=== PATIENT | male | born 1995 | race Caucasian/White ===

== ENCOUNTER 2018-08-25 21:52 | Emergency (ER) | payer OTHER ==
[~2018-08-25] VITALS: Ht 172.7 cm; Wt 68.2 kg
[2018-08-25 21:53] VITALS: BP 127/63
== END 2018-08-26 01:37 | disposition home or self-care (01) ==
LOC: M ED 21:52
DX: S61.212A Laceration without foreign body of right middle finger without damage to nail, initial encounter (principal); W26.8XXA Contact with other sharp object(s), not elsewhere classified, initial encounter; Y92.89 Other specified places as the place of occurrence of the external cause; Y99.0 Civilian activity done for income or pay; F17.200 Nicotine dependence, unspecified, uncomplicated

== ENCOUNTER 2018-11-29 01:11 | Emergency (ER) | payer OTHER, SELFPAY ==
[~2018-11-29] VITALS: Ht 172.7 cm; Wt 72.7 kg
[2018-11-29] MEDS ORDERED: ONDANSETRON 4MG/2ML VIAL (J2405) IV ONE (02:00)
[2018-11-29] MEDS ORDERED: NS 1,000 ML IV ONE (02:00)
[2018-11-29 02:31] LABS: BASO # 0.1 10^3/uL (0.0-0.2); BASO % 0.6 % (0.0-1.0); EOS # 0.2 10^3/uL (0.0-0.5); EOS % 2.7 % (0.0-3.0); HEMATOCRIT 43.4 % (42.0-52.0); HEMOGLOBIN 15.4 g/dl (13.5-17.5); LYMPH # 2.7 10^3/uL (1.5-5.0); LYMPH % 32.9 % (24.0-44.0); MEAN CORPUSCULAR HEMOGLOBIN 32.3 pg (27.0-33.0); MEAN CORPUSCULAR HGB CONC 35.5 g/dl (32.0-36.5); MONO # 0.6 10^3/uL (0.0-0.8); MONO % 6.9 % (0.0-5.0); NEUTROPHILS # 4.6 10^3/uL (1.5-8.5); NEUTROPHILS % 56.7 % (36.0-66.0); PLATELET COUNT, AUTOMATED 223 10^3/uL (150-450); RED BLOOD COUNT 4.77 10^6/uL (4.30-6.10); WHITE BLOOD COUNT 8.1 10^3/uL (4.0-10.0)
[2018-11-29 03:03] LABS: BLOOD UREA NITROGEN 15 MG/DL (7-18); CALCIUM LEVEL 8.7 MG/DL (8.5-10.1); CARBON DIOXIDE LEVEL 27 MEQ/L (21-32); CHLORIDE LEVEL 107 MEQ/L (98-107); CREATININE FOR GFR 0.78 MG/DL (0.70-1.30); GLOMERULAR FILTRATION RATE > 60.0 (>60); GLUCOSE, FASTING 96 MG/DL (70-100); MAGNESIUM LEVEL 1.8 MG/DL (1.8-2.4); SODIUM LEVEL 141 MEQ/L (136-145)
[2018-11-29 05:16] VITALS: BP 123/57
--- NOTE | 2018-11-29 06:00 | ECGEPIP ---
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
== END 2018-11-29 05:21 | disposition home or self-care (01) ==
LOC: M ED 01:11
DX: R55 Syncope and collapse (principal); F17.210 Nicotine dependence, cigarettes, uncomplicated; K21.9 Gastro-esophageal reflux disease without esophagitis
CPT/HCPCS: 80048; 83735; 85025; 93005; 96374; 99285; J2405

== ENCOUNTER 2018-12-08 19:49 | Emergency (ER) | payer OTHER, SELFPAY ==
[~2018-12-08] VITALS: Ht 172.7 cm; Wt 72.7 kg
[2018-12-08 23:28] LABS: HEMATOCRIT 41.9 % (42.0-52.0); HEMOGLOBIN 15.1 g/dl (13.5-17.5); MEAN CORPUSCULAR HEMOGLOBIN 31.9 pg (27.0-33.0); MEAN CORPUSCULAR VOLUME 88.4 fl (80.0-96.0); PLATELET COUNT, AUTOMATED 249 10^3/uL (150-450); RED BLOOD COUNT 4.74 10^6/uL (4.30-6.10); WHITE BLOOD COUNT 10.2 10^3/uL (4.0-10.0)
[2018-12-08] MEDS ORDERED: LORazepam 0.5 MG TAB PO ONE (23:30)
[2018-12-09] LABS: AMPHETAMINES LEVEL URINE NEGATIVE (NEGATIVE); BARBITURATES URINE NEGATIVE (NEGATIVE); BENZODIAZEPINES URINE NEGATIVE (NEGATIVE); CANNABINOIDS URINE POSITIVE (NEGATIVE); COCAINE METABOLITE URINE NEGATIVE (NEGATIVE); METHADONE URINE NEGATIVE (NEGATIVE); OPIATES URINE NEGATIVE (NEGATIVE); PHENCYCLIDINE URINE NEGATIVE (NEGATIVE)
[2018-12-09 00:05] LABS: ACETAMINOPHEN LEVEL < 2.0 UG/ML (10.0-30.0); ALT/SGPT 28 U/L (12-78); BILIRUBIN,DIRECT 0.3 MG/DL (0.0-0.2); BILIRUBIN,TOTAL 1.2 MG/DL (0.2-1.0); BLOOD UREA NITROGEN 15 MG/DL (7-18); CALCIUM LEVEL 8.7 MG/DL (8.5-10.1); CARBON DIOXIDE LEVEL 24 MEQ/L (21-32); CHLORIDE LEVEL 106 MEQ/L (98-107); CREATININE FOR GFR 0.89 MG/DL (0.70-1.30); ETHYL ALCOHOL (ETHANOL) < 0.003 % (0.000-0.010); GLOMERULAR FILTRATION RATE > 60.0 (>60); GLUCOSE, FASTING 79 MG/DL (70-100); POTASSIUM SERUM 3.7 MEQ/L (3.5-5.1); SALICYLATE LEVEL < 1.7 MG/DL (5.0-30.0); SODIUM LEVEL 139 MEQ/L (136-145); THYROID STIMULATING HORMONE 0.459 uIU/ML (0.358-3.740); TOTAL PROTEIN 7.4 GM/DL (6.4-8.2)
[2018-12-09 00:30] VITALS: BP 118/59
--- NOTE | 2018-12-09 20:41 | ECGEPIP ---
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
== END 2018-12-09 01:30 | disposition home or self-care (01) ==
LOC: M ED 19:49
DX: F41.9 Anxiety disorder, unspecified (principal); F32.9 Major depressive disorder, single episode, unspecified
CPT/HCPCS: 80048; 80076; 80307; 84443; 85027; 93005; 99284; G0480

== ENCOUNTER 2018-12-16 22:01 | Emergency (ER) | payer OTHER ==
[~2018-12-16] VITALS: Ht 172.7 cm; Wt 65.3 kg
[2018-12-16] MEDS ORDERED: LORazepam 1 MG TAB PO ONE (22:30)
[2018-12-16 22:36] LABS: HEMATOCRIT 46.9 % (42.0-52.0); HEMOGLOBIN 16.8 g/dl (13.5-17.5); MEAN CORPUSCULAR HEMOGLOBIN 32.1 pg (27.0-33.0); MEAN CORPUSCULAR HGB CONC 35.8 g/dl (32.0-36.5); MEAN CORPUSCULAR VOLUME 89.5 fl (80.0-96.0); PLATELET COUNT, AUTOMATED 239 10^3/uL (150-450); RED BLOOD COUNT 5.24 10^6/uL (4.30-6.10); WHITE BLOOD COUNT 9.7 10^3/uL (4.0-10.0)
[2018-12-16 23:00] LABS: AMPHETAMINES LEVEL URINE NEGATIVE (NEGATIVE); BARBITURATES URINE NEGATIVE (NEGATIVE); BENZODIAZEPINES URINE NEGATIVE (NEGATIVE); CANNABINOIDS URINE NEGATIVE (NEGATIVE); COCAINE METABOLITE URINE NEGATIVE (NEGATIVE); METHADONE URINE NEGATIVE (NEGATIVE); OPIATES URINE NEGATIVE (NEGATIVE); PHENCYCLIDINE URINE NEGATIVE (NEGATIVE)
[2018-12-16 23:28] LABS: ACETAMINOPHEN LEVEL < 2.0 UG/ML (10.0-30.0); ALBUMIN 4.4 GM/DL (3.2-5.2); ALT/SGPT 30 U/L (12-78); BILIRUBIN,DIRECT 0.2 MG/DL (0.0-0.2); BILIRUBIN,TOTAL 0.5 MG/DL (0.2-1.0); BLOOD UREA NITROGEN 20 MG/DL (7-18); CALCIUM LEVEL 9.1 MG/DL (8.5-10.1); CARBON DIOXIDE LEVEL 23 MEQ/L (21-32); CHLORIDE LEVEL 109 MEQ/L (98-107); CREATININE FOR GFR 0.85 MG/DL (0.70-1.30); ETHYL ALCOHOL (ETHANOL) < 0.003 % (0.000-0.010); GLOMERULAR FILTRATION RATE > 60.0 (>60); GLUCOSE, FASTING 86 MG/DL (70-100); POTASSIUM SERUM 3.6 MEQ/L (3.5-5.1); SALICYLATE LEVEL 2.6 MG/DL (5.0-30.0); SODIUM LEVEL 139 MEQ/L (136-145); THYROID STIMULATING HORMONE 0.891 uIU/ML (0.358-3.740)
[2018-12-16 23:44] VITALS: BP 129/71
--- NOTE | 2018-12-17 07:11 | ECGEPIP ---
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
== END 2018-12-16 23:47 | disposition home or self-care (01) ==
LOC: M ED 22:01
DX: F41.9 Anxiety disorder, unspecified (principal); I45.89 Other specified conduction disorders
CPT/HCPCS: 80048; 80076; 80307; 84443; 85027; 93005; 93041; 94760; 99284; G0480

== ENCOUNTER 2018-12-23 11:44 | Emergency (ER) | payer OTHER ==
[~2018-12-23] VITALS: Ht 172.7 cm; Wt 70.5 kg
--- NOTE | 2018-12-23 12:13 | ECGEPIP ---
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
[2018-12-23] MEDS ORDERED: diphenhydrAMINE INJ 50MG/ML VIAL (J1200) IV STA (12:23)
[2018-12-23] MEDS ORDERED: NS 1,000 ML IV ONE (12:30)
[2018-12-23 13:12] LABS: HEMOGLOBIN 16.8 g/dl (13.5-17.5); MEAN CORPUSCULAR HEMOGLOBIN 32.1 pg (27.0-33.0); MEAN CORPUSCULAR HGB CONC 35.7 g/dl (32.0-36.5); MEAN CORPUSCULAR VOLUME 89.9 fl (80.0-96.0); PLATELET COUNT, AUTOMATED 243 10^3/uL (150-450); RED BLOOD COUNT 5.23 10^6/uL (4.30-6.10); WHITE BLOOD COUNT 9.7 10^3/uL (4.0-10.0)
[2018-12-23 13:45] LABS: ACETAMINOPHEN LEVEL < 2.0 UG/ML (10.0-30.0); ALBUMIN 4.2 GM/DL (3.2-5.2); ALT/SGPT 50 U/L (12-78); BILIRUBIN,DIRECT 0.1 MG/DL (0.0-0.2); BILIRUBIN,TOTAL 0.4 MG/DL (0.2-1.0); BLOOD UREA NITROGEN 11 MG/DL (7-18); CALCIUM LEVEL 9.1 MG/DL (8.5-10.1); CARBON DIOXIDE LEVEL 23 MEQ/L (21-32); CHLORIDE LEVEL 110 MEQ/L (98-107); CPK CREATINE PHOSPHOKINASE 103 U/L (39-308); CREATININE FOR GFR 0.71 MG/DL (0.70-1.30); ETHYL ALCOHOL (ETHANOL) 0.025 % (0.000-0.010); GLOMERULAR FILTRATION RATE > 60.0 (>60); GLUCOSE, FASTING 83 MG/DL (70-100); POTASSIUM SERUM 3.8 MEQ/L (3.5-5.1); SODIUM LEVEL 142 MEQ/L (136-145); TOTAL PROTEIN 8.3 GM/DL (6.4-8.2)
[2018-12-23 14:31] LABS: AMPHETAMINES LEVEL URINE NEGATIVE (NEGATIVE); BARBITURATES URINE NEGATIVE (NEGATIVE); BENZODIAZEPINES URINE NEGATIVE (NEGATIVE); CANNABINOIDS URINE POSITIVE (NEGATIVE); COCAINE METABOLITE URINE NEGATIVE (NEGATIVE); METHADONE URINE NEGATIVE (NEGATIVE); OPIATES URINE NEGATIVE (NEGATIVE); PHENCYCLIDINE URINE NEGATIVE (NEGATIVE)
[2018-12-23 16:01] VITALS: BP 126/68
== END 2018-12-23 16:10 | disposition home or self-care (01) ==
LOC: M ED 11:44
DX: F10.129 Alcohol abuse with intoxication, unspecified (principal); F41.9 Anxiety disorder, unspecified; F17.200 Nicotine dependence, unspecified, uncomplicated
CPT/HCPCS: 36415; 80048; 80076; 80307; 82550; 83735; 84443; 85027; 93005; 96374; 99284; G0480; J1200

== ENCOUNTER 2019-03-12 03:25 | Emergency (ER) | payer OTHER ==
[~2019-03-12] VITALS: Ht 170.2 cm; Wt 69.0 kg
[2019-03-12] MEDS ORDERED: HYDR-3363 (03:53)
[2019-03-12] MEDS ORDERED: HYDR-3363 PO (06:01)
[2019-03-12] MEDS ORDERED: NS 1,000 ML IV ONE (06:45)
[2019-03-12 07:14] LABS: BASO # 0.1 10^3/uL (0.0-0.2); BASO % 0.4 % (0.0-1.0); EOS # 0.1 10^3/uL (0.0-0.5); EOS % 0.9 % (0.0-3.0); HEMATOCRIT 50.4 % (42.0-52.0); HEMOGLOBIN 17.4 g/dl (13.5-17.5); LYMPH # 3.3 10^3/uL (1.5-5.0); LYMPH % 22.8 % (24.0-44.0); MEAN CORPUSCULAR HEMOGLOBIN 32.3 pg (27.0-33.0); MEAN CORPUSCULAR HGB CONC 34.5 g/dl (32.0-36.5); MEAN CORPUSCULAR VOLUME 93.7 fl (80.0-96.0); MONO # 0.8 10^3/uL (0.0-0.8); MONO % 5.7 % (0.0-5.0); NEUTROPHILS % 69.8 % (36.0-66.0); PLATELET COUNT, AUTOMATED 245 10^3/uL (150-450); RED BLOOD COUNT 5.38 10^6/uL (4.30-6.10); WHITE BLOOD COUNT 14.3 10^3/uL (4.0-10.0)
[2019-03-12 07:37] LABS: AMPHETAMINES LEVEL URINE NEGATIVE (NEGATIVE); BARBITURATES URINE NEGATIVE (NEGATIVE); BENZODIAZEPINES URINE NEGATIVE (NEGATIVE); CANNABINOIDS URINE POSITIVE (NEGATIVE); COCAINE METABOLITE URINE POSITIVE (NEGATIVE); METHADONE URINE NEGATIVE (NEGATIVE); OPIATES URINE NEGATIVE (NEGATIVE); PHENCYCLIDINE URINE NEGATIVE (NEGATIVE)
[2019-03-12 07:51] LABS: ACETAMINOPHEN LEVEL < 2.0 UG/ML (10.0-30.0); ALBUMIN 3.9 GM/DL (3.2-5.2); ALT/SGPT 25 U/L (12-78); BILIRUBIN,DIRECT 0.2 MG/DL (0.0-0.2); BILIRUBIN,TOTAL 0.9 MG/DL (0.2-1.0); BLOOD UREA NITROGEN 10 MG/DL (7-18); CALCIUM LEVEL 8.9 MG/DL (8.5-10.1); CARBON DIOXIDE LEVEL 26 MEQ/L (21-32); CHLORIDE LEVEL 108 MEQ/L (98-107); CPK CREATINE PHOSPHOKINASE 102 U/L (39-308); CREATININE FOR GFR 0.84 MG/DL (0.70-1.30); ETHYL ALCOHOL (ETHANOL) < 0.003 % (0.000-0.010); GLOMERULAR FILTRATION RATE > 60.0 (>60); GLUCOSE, FASTING 84 MG/DL (70-100); POTASSIUM SERUM 4.5 MEQ/L (3.5-5.1); SALICYLATE LEVEL 2.1 MG/DL (5.0-30.0); SODIUM LEVEL 141 MEQ/L (136-145); TOTAL PROTEIN 7.3 GM/DL (6.4-8.2)
[2019-03-12 08:21] VITALS: BP 94/44
--- NOTE | 2019-03-14 14:52 | ECGEPIP ---
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
== END 2019-03-12 08:39 | disposition home or self-care (01) ==
LOC: M ED 03:25
DX: F19.10 Other psychoactive substance abuse, uncomplicated (principal); F14.10 Cocaine abuse, uncomplicated; F16.10 Hallucinogen abuse, uncomplicated; F41.9 Anxiety disorder, unspecified
CPT/HCPCS: 80048; 80076; 80307; 82550; 84443; 85025; 93005; 96360; 99284; G0480

== ENCOUNTER 2019-05-31 21:19 | Emergency (ER) | payer OTHER ==
[~2019-05-31] VITALS: Ht 172.7 cm; Wt 74.4 kg
[~2019-05-31 21:19] MED LIST: HYDR-3363; HYDR-3363 PO
[2019-05-31] MEDS ORDERED: KETOROLAC 30 MG/ML VIAL (J1885) IV ONE (22:15)
[2019-05-31] MEDS ORDERED: ASPIRIN 81 MG CHEW TABLET PO ONE (22:15)
--- NOTE | 2019-05-31 22:47 | REP ---
Clinical: Chest pain . Comparison: None . Technique: PA and lateral. Findings: The mediastinum and cardiac silhouette are normal. The lung albarran are clear and without acute consolidation, effusion, or pneumothorax. The skeletal structures are intact and normal. Impression: 1. No focal consolidation or effusion. Electronically Signed by Darvin Barnes MD 05/31/2019 10:39 P
[2019-05-31 22:56] LABS: BASO # 0.1 10^3/uL (0.0-0.2); BASO % 0.6 % (0.0-1.0); EOS # 0.3 10^3/uL (0.0-0.5); HEMOGLOBIN 17.6 g/dl (13.5-17.5); LYMPH # 2.5 10^3/uL (1.5-5.0); LYMPH % 27.8 % (24.0-44.0); MEAN CORPUSCULAR HGB CONC 35.9 g/dl (32.0-36.5); MEAN CORPUSCULAR VOLUME 91.8 fl (80.0-96.0); MONO # 0.6 10^3/uL (0.0-0.8); MONO % 6.7 % (0.0-5.0); NEUTROPHILS # 5.5 10^3/uL (1.5-8.5); NEUTROPHILS % 61.6 % (36.0-66.0); PLATELET COUNT, AUTOMATED 219 10^3/uL (150-450); RED BLOOD COUNT 5.34 10^6/uL (4.30-6.10)
[2019-05-31 23:25] LABS: BLOOD UREA NITROGEN 13 MG/DL (7-18); CALCIUM LEVEL 9.2 MG/DL (8.5-10.1); CARBON DIOXIDE LEVEL 30 MEQ/L (21-32); CHLORIDE LEVEL 106 MEQ/L (98-107); CK-MB VALUE MASS < 1.0 NG/ML (<3.6); CPK CREATINE PHOSPHOKINASE 185 U/L (39-308); CREATININE FOR GFR 0.92 MG/DL (0.70-1.30); GLOMERULAR FILTRATION RATE > 60.0 (>60); GLUCOSE, FASTING 79 MG/DL (70-100); LIPASE 129 U/L (73-393); MB/CK RELATIVE INDEX 0.54 (< OR =4); POTASSIUM SERUM 4.3 MEQ/L (3.5-5.1); SODIUM LEVEL 140 MEQ/L (136-145); TROPONIN I < 0.02 NG/ML (< 0.10)
[2019-05-31] MEDS ORDERED: IBUP-1022 PO (23:30)
[2019-05-31 23:35] VITALS: BP 117/57
--- NOTE | 2019-06-01 20:10 | ECGEPIP ---
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
== END 2019-05-31 23:50 | disposition home or self-care (01) ==
LOC: M ED 21:19
DX: R07.9 Chest pain, unspecified (principal); F17.210 Nicotine dependence, cigarettes, uncomplicated
CPT/HCPCS: 71046; 80048; 82550; 82553; 83690; 84484; 85025; 93005; 93041; 94760; 96374; 99284; J1885

== ENCOUNTER 2019-07-20 19:51 | Emergency (ER) | payer OTHER ==
[~2019-07-20] VITALS: Ht 172.7 cm; Wt 76.6 kg
[2019-07-20 19:51] VITALS: BP 139/71
[~2019-07-20 19:51] MED LIST changes: +IBUP-1022 PO
[2019-07-20] MEDS ORDERED: AMOXICILLIN 500 MG CAP PO ONE (20:30)
[2019-07-20] MEDS ORDERED: CLAR5TAB7 PO (20:34)
[2019-07-20] MEDS ORDERED: AMOX500C PO (20:34)
== END 2019-07-20 20:43 | disposition home or self-care (01) ==
LOC: M ED 19:51
DX: J01.90 Acute sinusitis, unspecified (principal); R05 Cough; F17.218 Nicotine dependence, cigarettes, with other nicotine-induced disorders

== ENCOUNTER 2020-05-31 20:36 | Emergency (ER) | payer MEDICAID, OTHER ==
[~2020-05-31] VITALS: Ht 172.7 cm; Wt 72.7 kg
[~2020-05-31 20:36] MED LIST changes: +AMOX500C PO; +CLAR5TAB7 PO
[2020-05-31] MEDS ORDERED: BOOSTRIX/ADACEL VACCINE (DIPHTH/PERTUSS/ACELL/TETANUS) 0.5ML SYR IM ONE (22:10)
[2020-05-31] MEDS ORDERED: NEOSPORIN OINT 0.9 GM PKT TOP ONE (23:55)
[2020-06-01 00:35] VITALS: BP 123/70
--- NOTE | 2020-06-01 08:12 | REP ---
INDICATION: INJURY. Repeat dictation. Preliminary report is provided at the time of the exam by iram COFFMAN. COMPARISON: Comparison radiographs of the right hand are from June 03, 2015.. TECHNIQUE: Four views. FINDINGS: Four views of the right hand demonstrate normal bones, joints, and soft tissues. No fracture or subluxation is seen. No opaque foreign body noted. IMPRESSION: Negative right hand series. <Electronically signed by Marvin Stroud > 06/01/20 [id number]
== END 2020-06-01 00:41 | disposition home or self-care (01) ==
LOC: M ED 20:36
DX: S60.511A Abrasion of right hand, initial encounter (principal); S63.91XA Sprain of unspecified part of right wrist and hand, initial encounter; W22.8XXA Striking against or struck by other objects, initial encounter; Y92.019 Unspecified place in single-family (private) house as the place of occurrence of the external cause; Y93.9 Activity, unspecified; Y99.9 Unspecified external cause status; F41.9 Anxiety disorder, unspecified

== ENCOUNTER 2020-11-06 12:49 | Emergency (ER) | payer OTHER ==
[~2020-11-06] VITALS: Ht 175.3 cm; Wt 82.6 kg
[2020-11-06 16:20] VITALS: BP 120/70
== END 2020-11-06 16:36 | disposition home or self-care (01) ==
LOC: M ED 12:49
DX: J06.9 Acute upper respiratory infection, unspecified (principal); B34.9 Viral infection, unspecified; R05 Cough; J02.9 Acute pharyngitis, unspecified; Z20.828 Contact with and (suspected) exposure to other viral communicable diseases; F17.200 Nicotine dependence, unspecified, uncomplicated

== ENCOUNTER 2020-11-08 03:12 | Emergency (ER) | payer OTHER ==
[~2020-11-08] VITALS: Ht 175.3 cm; Wt 82.7 kg
[2020-11-08 03:12] VITALS: BP 140/74
== END 2020-11-08 06:10 | disposition left against medical advice (07) ==
LOC: M ED 03:12
DX: Z53.21 Procedure and treatment not carried out due to patient leaving prior to being seen by health care provider (principal)

== ENCOUNTER → 2022-03-07 | Outpatient (REF) ==
[2022-03-07 15:51] LABS: RSV AMPLIFICATION NEGATIVE (NEGATIVE)
== END ==
LOC: M EMP 14:36
PROVIDERS: ATTEND Family Medicine
DX: Z20.818 Contact with and (suspected) exposure to other bacterial communicable diseases (principal)

== ENCOUNTER 2022-04-24 01:33 | Emergency (ER) | payer OTHER ==
[~2022-04-24] VITALS: Ht 175.3 cm; Wt 81.8 kg
[2022-04-24 01:34] VITALS: BP 139/65
== END 2022-04-24 02:45 | disposition left against medical advice (07) ==
LOC: M ED 01:33
DX: Z53.21 Procedure and treatment not carried out due to patient leaving prior to being seen by health care provider (principal)

== ENCOUNTER 2022-08-17 14:06 | Emergency (ER) | payer OTHER ==
[~2022-08-17] VITALS: Ht 172.7 cm; Wt 76.5 kg
[2022-08-17] MEDS ORDERED: KETOROLAC 30 MG/ML 1ML VIAL IM ONE (15:50)
[2022-08-17] MEDS ORDERED: LIDO15SO PO (15:54)
[2022-08-17] MEDS ORDERED: IBUP-1022 PO (15:54)
[2022-08-17 16:00] VITALS: BP 130/69
== END 2022-08-17 16:10 | disposition home or self-care (01) ==
LOC: M ED 14:06
DX: K02.9 Dental caries, unspecified (principal); S02.5XXA Fracture of tooth (traumatic), initial encounter for closed fracture; F10.10 Alcohol abuse, uncomplicated; Z79.2 Long term (current) use of antibiotics; Z79.899 Other long term (current) drug therapy
CPT/HCPCS: 96372; 99283; J1885

== ENCOUNTER 2025-02-21 23:32 | Emergency (ER) | payer OTHER ==
[~2025-02-21] VITALS: Ht 175.3 cm; Wt 81.8 kg
[~2025-02-21 23:32] MED LIST changes: -IBUP-1022 PO; +IBUP600T42 PO; +LIDO15SO8 PO
[2025-02-22 00:23] LABS: BASO # 0.1 10^3/uL (0.0-0.2); BASO % 0.5 % (0.0-1.0); EOS # 0.1 10^3/uL (0.0-0.5); EOS % 1.4 % (0.0-3.0); LYMPH # 2.7 10^3/uL (1.5-5.0); LYMPH % 26.5 % (24.0-44.0); MONO # 0.7 10^3/uL (0.0-0.8); MONO % 7.2 % (2.0-8.0); NEUTROPHILS # 6.5 10^3/uL (1.5-8.5); NEUTROPHILS % 64.1 % (36.0-66.0); PLATELET COUNT, AUTOMATED 258 10^3/uL (150-450)
[2025-02-22 00:36] LABS: AMPHETAMINES LEVEL URINE NEGATIVE (NEGATIVE); BARBITURATES URINE NEGATIVE (NEGATIVE)
[2025-02-22 00:37] LABS: BENZODIAZEPINES URINE NEGATIVE (NEGATIVE); COCAINE METABOLITE URINE NEGATIVE (NEGATIVE); METHADONE URINE NEGATIVE (NEGATIVE); OPIATES URINE NEGATIVE (NEGATIVE); PHENCYCLIDINE URINE NEGATIVE (NEGATIVE)
[2025-02-22 00:38] LABS: CANNABINOIDS URINE POSITIVE (NEGATIVE)
[2025-02-22 00:39] LABS: ETHYL ALCOHOL (ETHANOL) < 0.003 % (0.000-0.010)
[2025-02-22 00:41] LABS: ALT/SGPT 48 U/L (7.0-40); AST/SGOT 40 U/L (<34); CALCIUM LEVEL 9.3 MG/DL (8.5-10.1); CARBON DIOXIDE LEVEL 25 MMOL/L (20-31); CHLORIDE LEVEL 102 MMOL/L (98-107); CREATININE FOR GFR 0.92 MG/DL (0.70-1.30); GLOMERULAR FILTRATION RATE > 90.0 (>60); POTASSIUM SERUM 3.5 MMOL/L (3.5-5.1); SALICYLATE LEVEL < 3.0 MG/DL (<30); SODIUM LEVEL 137 MMOL/L (136-145)
[2025-02-22 00:43] LABS: CPK CREATINE PHOSPHOKINASE 719 U/L (46-171)
[2025-02-22 03:30] LABS: VENOUS BASE EXCESS -3.2 (-2.0-2.0); VENOUS HCO3 22.8 MMOL/L (23.0-27.0); VENOUS O2 SATURATION 94.8 % (60.0-80.0); VENOUS PARTIAL PRESSURE CO2 44.4 mmHg (38.0-50.0); VENOUS PARTIAL PRESSURE O2 77.9 mmHg (30.0-50.0); VENOUS PH 7.329 UNITS (7.330-7.430); VENOUS STANDARD HCO3 21.8 MMOL/L; VENOUS TOTAL CO2 24.2 MMOL/L (24.0-28.0)
[2025-02-22 06:00] VITALS: TEMP 98.5
[2025-02-22 06:45] VITALS: BP 108/56; O2SAT 95
== END 2025-02-22 06:54 | disposition home or self-care (01) ==
LOC: M ED 23:32
DX: T43.631A Poisoning by methylphenidate, accidental (unintentional), initial encounter (principal); F41.9 Anxiety disorder, unspecified; F90.9 Attention-deficit hyperactivity disorder, unspecified type; F17.200 Nicotine dependence, unspecified, uncomplicated; F19.10 Other psychoactive substance abuse, uncomplicated; F10.10 Alcohol abuse, uncomplicated